=== PATIENT | male | born 2000 | race Caucasian/White ===

== ENCOUNTER 2022-08-09 12:07 | Emergency (ER) | payer OTHER ==
[2022-08-09] MEDS ORDERED: predniSONE 20 MG TABLET PO STA (12:23)
--- NOTE | 2022-08-09 12:26 | ED Physician Documentation ---
PD HPI SKIN - Stated complaint Stated Complaint: RASH - Chief complaint Chief Complaint: Allergic Rx - History obtained from History obtained from: Patient - Additional information Additional information: Starting 2 days ago he developed an itchy burning rash. It started in the left antecubital fossa, then moved to the right thigh, and then more the anterior trunk and right greater than left calf. No clear cause. He is never had this before. Tried Benadryl without relief. PD PAST MEDICAL HISTORY - Present Medications Home Medications: Ambulatory Orders Medication Instructions Recorded Confirmed Doxepin [SINEquan] 10 mg PO TID PRN #20 cap 08/09/22 predniSONE [Deltasone] 60 mg PO DAILY 5 Days #15 tablet 08/09/22 - Allergies Allergies/Adverse Reactions: Allergies Allergy/AdvReac Type Severity Reaction Status Date / Time No Known Drug Allergies Allergy Verified 08/09/22 12:19 PD ED PE NORMAL - Vitals Vital signs reviewed: Yes - General General: Alert and oriented X 3, No acute distress - Extremities Extremities: Other (He has cystic acne on the face and back, he has a fine Raised red rash especially in the right antecubital fossa but also in the above mentioned distribution. It is not petechial.) - Neuro Neuro: Alert and oriented X 3, Normal speech Results - Vitals Vitals: Vital Signs - 24 hr 08/09/22 12:14 Temperature 36.7 C Heart Rate 77 Respiratory 15 Rate Blood Pressure 154/98 H O2 Saturation 100 Oxygen O2 Source Room air PD Medical Decision Making - ED course ED course: 21-year-old gentleman with nonspecific inflammatory nonpetechial burning/itchy rash. Will start on steroids and doxepin. Departure - Departure Disposition: 01 Home, Self Care Clinical Impression: Rash and nonspecific skin eruption Condition: Good Record reviewed to determine appropriate education?: Yes Instructions: ED Allergic Reaction General Other Prescriptions: predniSONE [Deltasone] 60 mg PO DAILY 5 Days #15 tablet Doxepin [SINEquan] 10 mg PO TID PRN #20 cap PRN Reason: Itching Comments: [place] The cause of the rash is not clear but the treatment should help regardless. Follow-up with your PCM and return if worsening.
[2022-08-09 12:54] VITALS: BP 121/74
== END 2022-08-09 12:49 | disposition home or self-care (01) ==
LOC: ED 12:07
DX: R21 Rash and other nonspecific skin eruption (principal)
CPT/HCPCS: 99282; 99283; J7512